=== PATIENT | female | born 1995 | race Caucasian/White ===

== ENCOUNTER 2022-07-31 13:44 | Outpatient (CLI) | payer OTHER, SELFPAY ==
[2022-07-31 21:39] LABS: Albumin* 4.3 g/dL (3.3-5.0); Chloride* 103 mmol/L (96-114); Sodium* 139 mmol/L (135-149)
[2022-07-31 21:40] LABS: Potassium* 4.5 mmol/L (3.6-5.1)
[2022-07-31 21:42] LABS: Alanine Aminotransferase* 39 U/L (4-35); Alkaline Phosphatase* 88 U/L (40-150); Aspartate Amino Transferase* 27 U/L (12-35); Bilirubin Total* 0.4 mg/dL (0.1-1.5); Blood Urea Nitrogen* 13 mg/dL (5-24); Carbon Dioxide* 29 mmol/L (20-32); Creatinine* 0.7 mg/dL (0.5-1.5); Estimated Glomerular Filt Rate 122 ml/min; Glucose* 93 mg/dL (60-115); Lipase* 96 U/L (23-300); Total Protein* 6.9 g/dL (6.0-8.3)
[2022-07-31 21:43] LABS: Calcium* 9.8 mg/dL (8.4-10.6)
== END 2022-07-31 13:45 | disposition home or self-care (01) ==
PROVIDERS: PCP Family Medicine; Visit Provider Family Medicine
DX: R10.9 Unspecified abdominal pain (principal)
CPT/HCPCS: 80053; 83690

== ENCOUNTER 2022-08-08 07:20 | Outpatient (CLI) | payer OTHER, SELFPAY ==
--- NOTE | 2022-08-08 08:00 | CRLHL7_ITS ---
For Patients: As a result of the Century Cures Act, medical imaging exams and procedure reports are released immediately into your electronic medical record. You may view this report before your referring provider. If you have questions, please contact your health care provider. Indication: LLQ abdominal pain Technique: Postcontrast CT abdomen and pelvis. 130 cc Isovue 370 intravenous contrast. Please note that all CT scans at this facility use dose modulation, iterative reconstruction, and/or weight-based dosing when appropriate to reduce radiation dose to as low as reasonably achievable. Comparison: None Findings: Intrauterine device is located centrally within the uterus. The ovaries are both normal. No evidence diverticulitis. No bowel obstruction. No evidence of colitis. No enteritis. No inflammatory bowel disease. Spleen is normal. Normal pancreas. Normal gallbladder. Normal liver. The kidneys are normal. Normal adrenal glands. Ureters are unremarkable. No free air. Lung bases are clear. Osseous structures normal. Impression: Normal CT of the abdomen and pelvis. No cause for left lower quadrant abdominal pain. Please note that all CT scans at this facility use dose modulation, iterative reconstruction, and/or weight-based dosing when appropriate to reduce radiation dose to as low as reasonably achievable. Dictated by Edward Hampton MD @ 08/08/2022 12:07:55 PM (Electronically Signed)
== END 2022-08-08 07:21 | disposition home or self-care (01) ==
LOC: CT 07:26
PROVIDERS: PCP Family Medicine; Visit Provider Family Medicine
DX: R10.32 Left lower quadrant pain (principal)
CPT/HCPCS: 74177; Q9967